=== PATIENT | female | born 1955 | race Caucasian/White ===

== ENCOUNTER 2022-05-05 12:27 | Day surgery (SDC) | payer MEDICARE, BC ==
[~2022-05-05] VITALS: Ht 167.6 cm; Wt 104.3 kg
[2022-05-05] VITALS (10 sets, daily range): BP systolic 107–129; BP diastolic 54–77
[2022-05-05] MEDS ORDERED: normal saline 1,000 ML IV SCH (12:55)
[2022-05-05] MEDS ORDERED: diphenhydrAMINE 25mg capsule PO PRN (12:55)
[2022-05-05] MEDS ORDERED: LORazepam 0.5 MG tablet PO PRN (12:55)
[2022-05-05] MEDS ORDERED: ASPI-1265 PO (13:03)
[2022-05-05] MEDS ORDERED: METF-900 PO (13:03)
[2022-05-05] MEDS ORDERED: LISI5TAB22 PO (13:03)
[2022-05-05] MEDS ORDERED: ISOS30TA84 PO (13:03)
[2022-05-05] MEDS ORDERED: LIRA0.6P SQ (13:03)
[2022-05-05] MEDS ORDERED: DESV50TA20 PO (13:03)
[2022-05-05] MEDS ORDERED: METO25TA6 PO (13:03)
[2022-05-05] MEDS ORDERED: ATOR-2 PO (13:03)
[2022-05-05] MEDS ORDERED: nitroGLYCERIN-Tridil 50MG/D5W 250 ML IV ONE (14:42)
[2022-05-05] MEDS ORDERED: verapamil 2.5 mg/ml inj IV ONE (14:42)
[2022-05-05] MEDS ORDERED: LIDOcaine 1% (10mg/ml) 2ml vial ONE (14:42)
[2022-05-05] MEDS ORDERED: heparin 1,000unit/ml 10ml vial 10 ML ONE (14:42)
[2022-05-05] MEDS ORDERED: midazolam 1 mg/ML 2ml injection ONE (14:42)
[2022-05-05] MEDS ORDERED: iohexol 350MG/ML 100ml bottle IV ONE (14:42)
[2022-05-05] MEDS ORDERED: fentaNYL/PF 50MCG/1 ML 2ML syringe ONE (14:42)
[2022-05-05] MEDS ORDERED: HYDROcodone/acetaminophen 5mg/325mg tablet PO PRN (16:15)
[2022-05-05] MEDS ORDERED: HYDROcodone/acetaminophen 10/325mg tab PO PRN (16:15)
== END 2022-05-05 18:05 | disposition home or self-care (01) ==
LOC: SSTAY O 12:27
PROVIDERS: ATTEND Student in an Organized Health Care Education/Training Program
DX: R94.39 Abnormal result of other cardiovascular function study (principal); I25.10 Atherosclerotic heart disease of native coronary artery without angina pectoris; I10 Essential (primary) hypertension; E78.5 Hyperlipidemia, unspecified; E11.9 Type 2 diabetes mellitus without complications; G47.33 Obstructive sleep apnea (adult) (pediatric); Z79.899 Other long term (current) drug therapy; Z98.890 Other specified postprocedural states; Z88.0 Allergy status to penicillin
CPT/HCPCS: 82948; 93005; 93458; 99152; A6258; C1769; C1894; J1644; J2250; J3010; J3490; J7030; Q0163; Q9967; 99153; A5120; A6402